=== PATIENT | female | born 1995 | race Caucasian/White ===

== ENCOUNTER 2020-12-25 08:22 | Emergency (ER) | payer MEDICAID, SELFPAY ==
[2020-12-25 08:22] VITALS: BP 152/96; PULSE 83; RESP 18; TEMP 36.6; O2SAT 99; BMI 41.1
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
== END 2020-12-25 09:59 | disposition home or self-care (01) ==
LOC: ED 09:54
PROVIDERS: Emergency Provider Emergency Medicine
DX: S16.1XXA Strain of muscle, fascia and tendon at neck level, initial encounter (principal); S39.012A Strain of muscle, fascia and tendon of lower back, initial encounter; V89.2XXA Person injured in unspecified motor-vehicle accident, traffic, initial encounter; Y93.9 Activity, unspecified; Y92.9 Unspecified place or not applicable; Y99.9 Unspecified external cause status; F84.0 Autistic disorder
CPT/HCPCS: 72040; 72100; 99282

== ENCOUNTER 2023-09-29 16:29 | Emergency (ER) | payer SELFPAY ==
[2023-09-29 16:30] VITALS: BP 142/82; PULSE 83; RESP 17; TEMP 35.7; O2SAT 96; BMI 45.1
--- NOTE | 2023-09-29 17:01 | ED.VIS.FEGU ---
HPI HPI - Female History of Present Illness Chief Complaint: Informant: patient Pain Pain: Positive for Pelvic Pain Context: Gradual Onset Timing: Continuous Location: RLQ, LLQ and Suprapubic Worsened by: - (Nothing) Relieved by: - (Nothing) Associated Symptoms Associated Symptoms: Positive for Frequency and Missed Period; Negative for Dysuria or Hematuria Test: Positive Narrative Narrative: Patient presents because she is approximately 1-1/2 weeks late on her menstrual cycle. Patient states her last menstrual period began on 08/21/2023. Patient states she has taken 3 home tests which were positive. Patient is concerned that she may be and have a miscarriage. Patient complains of some pain over her lower abdomen. Patient admits to some nausea but denies any vomiting. Patient denies any fevers or chills. Patient admits to some urinary frequency but denies any dysuria or hematuria. [facility] Medical History Autism Home Medications cyclobenzaprine 10 mg tablet 10 mg PO TID PRN Muscle Spasm #20 TABLETS 12/25/20 [Rx Last Taken Unknown] naproxen 500 mg tablet 500 mg PO BID #14 tabs 12/25/20 [Rx Last Taken Unknown] Allergy/AdvReac Type Severity Reaction Status Date / Time aspirin Allergy Swelling Verified 12/25/20 08:25 Penicillins Allergy Swelling Verified 12/25/20 08:25 phytonadione (vitamin K1) Allergy Swelling Verified 04/24/22 15:05 Social History Smoking Status: Never smoker ROS ROS ED Constitutional Constitutional ED: Denies chills or fever(s) Eyes Eyes: Denies blurry vision or change in vision ENT ENT ED: Denies rhinorrhea or sore throat Cardiovascular Cardiovascular: Denies chest pain or palpitations Respiratory/Chest Respiratory/Chest: Reports cough; Denies dyspnea Gastrointestinal Gastrointestinal: Reports nausea; Denies vomiting Genitourinary Genitourinary ED: Reports urinary frequency; Denies dysuria or hematuria Musculoskeletal Musculoskeletal: Denies back pain or neck pain Integumentary Denies abscess or rash Neurologic Neurologic: Reports headache(s); Denies weakness Allergic/Immunologic Allergic/Immunologic ED: Denies mouth swelling or urticaria EXAM Physical Exam Const Vital Signs: 09/29/23 16:30 09/29/23 18:30 Temperature 96.2 F L Temperature Source Temporal Pulse Rate 83 94 Respiratory Rate 17 16 Blood Pressure 142/82 H 126/75 H Blood Pressure Mean 102 92 Pulse Ox 96 99 Oxygen Delivery Method Room Air Room Air Positive well nourished, well developed and obese General Appearance ED: well developed and NAD Nutritional Appearance: obese HEENT Reports moist mucous membranes Neck supple and no JVD Resp normal respiratory effort and clear to auscultation bilaterally Cardio regular rate and regular rhythm GI soft to palpation and non-distended Palpation: tender LLQ, RLQ and suprapubic; Negative for guarding Neuro oriented x3, CN's II-XII intact bilaterally and no sensory deficits noted Sensorium / Orientation: alert Motor Exam: strength 5/5 throughout Psych mental status grossly normal MDM MDM MDM Narrative Medical decision making narrative: Differential diagnosis includes , ectopic , urinary tract infection, cystitis, and irregular vaginal bleeding. Since the patient states she has had 3 positive home test, quantitative hCG will be obtained to assess for status. CBC will be obtained to assess for leukocytosis and anemia. Basic metabolic profile will be obtained to assess for electrolyte abnormality and renal function. Urinalysis will be obtained to assess for urinary tract infection and hematuria. Type and Rh will be obtained to assess for patient's blood type status. Lab Data Attestation: I reviewed the patient's lab results. Lab results narrative: CBC was reviewed and was within normal limits. Basic metabolic profile was reviewed and was within normal limits. Quantitative hCG was reviewed and was less than 1. Blood type was reviewed and was A negative. Labs: Laboratory Results - last 24 hr 09/29/23 09/29/23 09/29/23 17:15 17:50 18:50 WBC 4.5 RBC 4.86 Hgb 14.7 Hct 44.3 MCV 91.2 MCH 30.2 MCHC 33.2 RDW Std Deviation 43.5 RDW Coeff of [place] 13.1 Plt Count 238 MPV 8.7 Immature Gran % (Auto) 0.000 Neut % (Auto) 49.4 Lymph % (Auto) 32.7 [place]atte % (Auto) 15.3 H Eos % (Auto) 2.2 Baso % (Auto) 0.4 Absolute Neuts (auto) 2.2 Absolute Lymphs (auto) 1.48 Nucleated RBC % 0 Sodium 140 Potassium 3.5 Chloride 107 Carbon Dioxide 31.0 Anion Gap 2 L BUN 11 Creatinine 0.66 Estim Creat Clear Calc 152.57 Est GFR (MDRD) Af Amer 140 Est GFR (MDRD) Non-Af 116 BUN/Creatinine Ratio 16.7 Glucose 113 H Calcium 9.0 HCG, Quant < 1 Urine Color Yellow Urine Clarity Cloudy Urine pH 8.0 Ur Specific [place] 1.015 Urine Protein 15 H Urine Glucose (UA) Normal Urine Ketones Negative Urine Occult Blood 250 H Urine Nitrite Negative Urine Bilirubin Negative Urine Urobilinogen Normal Ur Leukocyte Esterase Negative Urine RBC 50-100 SEEN Urine WBC 0-5 SEEN Ur Squamous Epith Cells 0 SEEN Amorphous Sediment 2+ Urine Bacteria 2+ Urine Mucus 0 SEEN Blood Type Cancelled A NEGATIVE Treatment and Re-Evaluation Narrative: Patient was advised of her findings. Patient was instructed to drink plenty of fluids. Patient was instructed to follow-up with her TELEVISION SCHEDULE COORDINATOR in 5 to 7 days. Patient was instructed to return if worse in any way. Patient understood and was agreeable with the plan. All questions were answered. Discharge Plan Triage Chief Complaint: ED Provider: Arslan Aaron Dx/Rx/DC Orders Clinical Impression: Irregular menstrual bleeding, Pelvic pain Instructions: ED Pelvic Pain, Unknown Cause Prescriptions: No Action cyclobenzaprine [cyclobenzaprine] 10 MG tablet 10 mg PO TID PRN (Reason: Muscle Spasm) Qty: 20 0RF naproxen 500 MG tablet 500 mg PO BID Qty: 14 0RF Primary Care Provider: Care Physician,No Primary Referrals: Jayashree Bosch MD [Med Staff - Active Staff] - 5-7 Days Care Physician,No Primary [Primary Care Provider] - Disposition Disposition: Home, Self Care
[2023-09-29 17:30] LABS: Absolute Lymphocyte Count 1.48 X10^3/uL (0.83-4.51); Absolute Neutrophil Count 2.2 X10^3/uL (2.0-7.7); Basophil# 0.02 X10^3/uL; Basophil% 0.4 % (0-1); Eosinophils% 2.2 % (0-5); Hematocrit 44.3 % (37-47); Hemoglobin 14.7 g/dL (12.0-15.0); Lymphocyte # 1.48 X10^3/ul (0.83-4.51); Lymphocyte % 32.7 % (19-41); Mean Corp Hgb Conc 33.2 g/dL (32-36); Mean Corpuscular Hgb 30.2 pg (27.0-32.0); Mean Corpuscular Volume 91.2 fL (81-99); Mean Platelet Vol. 8.7 fl (6.2-12.0); Monocyte# 0.69 X10^3/uL; Monocyte% 15.3 % (0-10); NRBC Flagged by Analyzer 0 % (0-5); Neutrophil # 2.23 X10^3/uL (2.7-7.7); Neutrophil % 49.4 % (47-70); Platelet Count 238 K/mm3 (150-450); RBC Distribution Width CV 13.1 % (11.6-14.6); RBC Distribution Width SD 43.5 fl (35.1-43.9); Red Blood Count 4.86 M/mm3 (4.2-5.4); White Blood Count 4.5 K/mm3 (4.4-11.0)
[2023-09-29 17:45] LABS: Anion Gap 2 (5-15); BUN 11 mg/dL (7-18); BUN/Creat Ratio 16.7 RATIO (10-20); Chloride 107 mmol/L (98-107); Creatinine, Serum 0.66 mg/dL (0.55-1.02); EST Glomerular Filtration Rate 116 mL/min (>60); Est Glom Filt Rate - Afr Amer 140 mL/min (>60); Estimated Creatinine Clearance 152.57 ml/min; Glucose 113 mg/dL (74-106); Potassium 3.5 mmol/L (3.5-5.1); Sodium Level 140 mmol/L (136-145)
[2023-09-29 17:48] LABS: hCG Titer Quant., Serum < 1 mIU/mL (1-3)
[2023-09-29] MEDS: 0.9% Normal Saline (1000mL) 1,000 ML 1000 ML IV (18:02)
[2023-09-29 18:30] VITALS: BP 126/75; PULSE 94; RESP 16; O2SAT 99
[2023-09-29 19:01] LABS: Mucous, Urine 0 SEEN /hpf (<or=2+); Squamous Epithelial Cells - UA 0 SEEN /hpf (5-10)
[2023-09-29 19:02] LABS: Color, Urine Yellow (Yellow); Glucose, Dipstick Normal (Normal); Ketone-Dipstick Negative (Negative); Leukocyte Esterase-Dipstick Negative /ul (Negative); Nitrite-Dipstick Negative (Negative); Occult Blood-Urine 250 /ul (Negative); Protein-Dipstick 15 mg/dl (Negative); Specific Gravity, Urine 1.015 (1.002-1.030); Urine Bilirubin Dipstick Negative (Negative); Urine Clarity Cloudy (Clear); Urine Urobilinogen Normal (Normal)
[2023-09-29 19:08] LABS: Amorphous Sediment 2+; Bacteria 2+ /hpf (None Seen)
[2023-09-29 19:09] LABS: Red Blood Cells-Urine 50-100 SEEN /hpf (0-5); White Blood Cells 0-5 SEEN /hpf (0-5)
[2023-09-29 20:00] VITALS: BP 125/75; PULSE 63; RESP 17; O2SAT 98
[2023-09-29 20:09] VITALS: BP 125/75; PULSE 64; RESP 17; TEMP 36.6; O2SAT 98
== END 2023-09-29 20:10 | disposition home or self-care (01) ==
PROVIDERS: Emergency Provider Emergency Medicine; Visit Provider Emergency Medicine
DX: N92.6 Irregular menstruation, unspecified (principal); R10.2 Pelvic and perineal pain; R11.0 Nausea; F84.0 Autistic disorder
CPT/HCPCS: 80048; 81001; 84702; 85025; 86900; 86901; 96360; 96361; 99283; J7030; A4216